=== PATIENT | female | born 1975 | race Caucasian/White ===

== ENCOUNTER → 2020-08-06 12:31 | Outpatient (CLI) | payer BC, SELFPAY ==
--- NOTE | ~2020-08-06 | MM_ITS ---
EXAMINATION: MM screening syed BI w analisa HISTORY: Screening mammogram TECHNIQUE: Craniocaudal and mediolateral oblique 3-D tomosynthesis images were obtained and synthetic 2-D images were generated. CAD analysis was submitted and interpreted. COMPARISON: No prior mammogram is available for comparison at this institution. BREAST PARENCHYMAL COMPOSITION: There are scattered areas of fibroglandular density. FINDINGS: There is no evidence of suspicious mass, calcification, or architectural distortion to sugg est malignancy in either breast. There has been no suspicious interval change. IMPRESSION: 1. No mammographic evidence of malignancy. 2. Recommend routine screening mammography in one year. BI-RADS Category 1: Negative Reviewed, dictated and finalized at location A.
== END ==
PROVIDERS: Visit Provider Obstetrics & Gynecology
DX: Z12.31 Encounter for screening mammogram for malignant neoplasm of breast (principal)
CPT/HCPCS: 77063; 77067

== ENCOUNTER 2022-12-03 08:17 | Emergency (ER) | payer BC, SELFPAY ==
--- NOTE | 2022-12-03 08:23 | ED.EAR ---
HPI - Ear Problem General Chief complaint: Ear Stated complaint: EARACHE Time Seen by Provider: 12/03/22 08:23 Source: patient and RN notes reviewed History of Present Illness HPI Narrative: Patient is a 47-year-old female who presents to urgent care with complaints of left ear pain/swelling. Patient states that it started yesterday. States that she has had this in the past and up in the hospital with cellulitis in her face. Patient denies any injury to the ear. Denies any recent fevers, nausea vomiting. Patient has not taken anything [id number] for her symptoms. No acute distress noted. Patient aware of the plan of care. Some parts of this dictation were generated by voice recognition software and may contain typographical and/or grammatical inaccuracies. Related Data Allergies Allergy/AdvReac Type Severity Reaction Status Date / Time No Known Allergies Allergy Verified 12/03/22 08:53 Review of Systems Review of Systems: CONSTITUTIONAL: Denies fever, chills, or sweats. EYES: Denies visual changes, redness, or discharge. ENT: Denies rhinorrhea, congestion, sore throat, or otalgia. CARDIOVASCULAR: Denies chest pain, palpitations, or edema. RESPIRATORY: Denies cough or dyspnea. GASTROINTESTINAL: Denies abdominal pain, nausea, vomiting, or diarrhea. GENITOURINARY: Denies dysuria or hematuria. SKIN: Denies rash or itching. MUSCULOSKELETAL: Denies back pain, joint pain, or myalgia. NEUROLOGIC: Denies headache, numbness, or weakness. PSYCHIATRIC: Denies anxiety or depression. All other systems reviewed are negative, except as documented in HPI. PMFSH Comments At the time of my signature, I reviewed and agree with the nursing past medical, surgical, social, and family history. There is no relevant family history pertinent to the patient complaint. Exam Narrative: GENERAL: This is a well-nourished, well-developed patient, in no apparent distress. HEAD: normocephalic, atraumatic. EYES: PERRL. Sclera clear/white. Vision is grossly intact. EARS: External ears normal, right auditory canals clear and without drainage, right TM normal without perforation. Moderate edema and erythema to the left auditory canal with white drainage. Unable to visualize left TM due to swelling. Hearing grossly intact. NOSE: External nose normal with no obvious nasal discharge, nares without redness, no rhinorrhea. THROAT: Mucous membranes moist NECK: Neck supple, non-tender without lymphadenopathy NEURO: awake, alert, and oriented to person, place and time. There were no obvious focal neurologic abnormalities. EXTREMITIES: No clubbing, cyanosis, or edema. Course Course Level of Care: Express Care Visit Vital Signs Vital signs: Vital Signs Temperature 98.2 F 12/03/22 08:47 Pulse Rate 87 12/03/22 08:47 Respiratory Rate 18 12/03/22 08:47 Blood Pressure 143/81 H 12/03/22 08:47 Pulse Oximetry 99 12/03/22 08:47 Oxygen Delivery Room Air 12/03/22 08:47 Temperature 98.2 F 12/03/22 08:47 Pulse Rate 87 12/03/22 08:47 Respiratory Rate 18 12/03/22 08:47 Blood Pressure 143/81 H 12/03/22 08:47 Pulse Oximetry 99 12/03/22 08:47 Oxygen Delivery Room Air 12/03/22 08:47 Reviewed- Patient is informed that they may have pre-hypertension or hypertension based on a blood pressure reading in the department. I recommend the patient call the primary care provider listed on their discharge instructions or a physician of their choice this week to arrange follow-up for further evaluation of possible pre-hypertension or hypertension. Medical Decision Making MDM Narrative Medical decision making narrative: Advised patient to use Tylenol/ibuprofen as needed for pain or discomfort. May also use a cool compress. Do not put anything in the ears with the exception the [id number] ear drops. Avoid water, peroxide, Q-tips. Try to not use any ear plugs or headphones in the ears. Complete the oral antibiotic regimen as prescribe
[2022-12-03 08:47] VITALS: BP 143/81; PULSE 87; RESP 18; TEMP 36.8; O2SAT 99
== END 2022-12-03 08:55 | disposition home or self-care (01) ==
PROVIDERS: Emergency Provider Nurse Practitioner Family
DX: H61.012 Acute perichondritis of left external ear (principal); H60.502 Unspecified acute noninfective otitis externa, left ear
CPT/HCPCS: 99203; G0463